=== PATIENT | female | born 1965 | race Caucasian/White ===

== ENCOUNTER 2025-01-19 14:11 | Emergency (ER) | payer OTHER, MEDICAID, SELFPAY ==
[2025-01-19 14:13] VITALS: BP 164/89; PULSE 96; RESP 16; TEMP 36.7; O2SAT 96; BMI 28.1
--- NOTE | 2025-01-19 14:13 | ED_ITS ---
HPI - General Adult 2 General: Chief complaint: Psychiatric Symptoms Stated complaint: 96 Time Seen by Provider: 01/19/25 14:12 History of Present Illness: 59-year-old female presents emergency ro om in custody of law enforcement. She is brought in under 96 she had made several threats to feeling worse or feel that affidavits that she was going to harm herself and instead been taking several Xanax she appears to be under the influence of those at this time. She denies any drug or alcohol use. She is gotten into some fights with her and really they are going through a divorce she is very upset which precipitated the episode today. Associated symptoms: Deny chest pain, dyspnea or rash Related Data Allergies Allergy/AdvReac Type Severity Reaction Status Date / Time naproxen (From Aleve) Allergy ADR-Itching Verified 01/19/25 14:21 Review of Systems 2 Const: Denies: fever(s) or chills Card: Denies: chest pain Resp: Denies: dyspnea GI: Denies: abdominal pain : Denies: dysuria, urinary frequency or urinary urgency Musc: Denies: neck pain or back pain Skin/Breast: Denies: rash Physical Exam 2 Const: GENERAL APPEARANCE: cooperative ORIENTATION/CONSCIOUSNESS: Yes awake HENMT: COMMON NORMALS: normocephalic, atraumatic and hearing grossly normal bilaterally HEAD & SCALP: normocephalic and atraumatic Resp: COMMON NORMALS: normal respiratory effort, No retractions, No use of accessory muscles and clear to auscultation bilaterally AUSCULTATION: clear to auscultation bilaterally Cardio: COMMON NORMALS: regular rate, regular rhythm and No murmurs present (Cardio) RATE: regular rate RHYTHM: regular rhythm Extremity: COMMON NORMALS: normal to inspection, capillary refill normal, no clubbing, cyanosis or edema, no calf tenderness and no pedal edema Skin: COMMON NORMALS: no rashes or lesions noted GENERAL SKIN EXAM: no rashes or lesions noted Course 2 Vital Signs: Vital signs: Vital Signs Temperature 98.1 F 01/19/25 14:13 Pulse Rate 96 01/19/25 14:13 Respiratory Rate 16 01/19/25 14:13 Blood Pressure 164/89 01/19/25 14:13 Pulse Oximetry 96 01/19/25 14:13 Oxygen Delivery Me thod Room Air 01/19/25 14:13 MDM - General Adult Medical Decision Making Patient has made suicidal expression she is currently on a 96-hour hold. Reviewed affidavits this point with concur with admission to psychiatry and her 96-hour hold we do not have any beds available at our facility and she will need to be transferred to outside facility. Medical Records I reviewed the patient's medical records. Lab Data I reviewed the patient's lab results. 01/19/25 14:54 01/19/25 14:54 Laboratory Results WBC 8.11 10^3/uL (3.29-11.43) 01/19/25 14:54 RBC 4.53 10^6/uL (3.85-5.65) 01/19/25 14:54 Hgb 12.40 g/dL (11.27-16.99) 01/19/25 14:54 Hct 39.8 % (36-47) 01/19/25 14:54 MCV 87.9 fl (85-98) 01/19/25 14:54 MCH 27.4 pg (27-33) 01/19/25 14:54 MCHC 31.2 g/dL (30-55) 01/19/25 14:54 RDW 14.4 % (12.1-15.1) 01/19/25 14:54 Plt Count 385 10^3/cmm (157-399) 01/19/25 14:54 MPV 9.0 fL (7.4-10.4) 01/19/25 14:54 Neut % (Auto) 51.3 % 01/19/25 14:54 Lymph % (Auto) 36.3 % 01/19/25 14:54 [place] % (Auto) 9.2 % 01/19/25 14:54 Eos % (Auto) 2.5 % 01/19/25 14:54 Baso % (Auto) 0.5 % 01/19/25 14:54 Neut # (Auto) 4.16 10^3/uL (1.8-7.7) 01/19/25 14:54 Lymph # (Auto) 2.9 10^3/uL (0.8-4.8) 01/19/25 14:54 Chelan # (Auto) 0.8 10^3/uL (0.2-0.9) 01/19/25 14:54 Eos # (Auto) 0.2 10^3/uL (0.0-0.8) 01/19/25 14:54 Baso # (Auto) 0.0 10^3/uL (0.0-0.1) 01/19/25 14:54 Nucleated RBC % (auto) 0 % 01/19/25 14:54 Nucleated RBCs # 0.0 /100WBC 01/19/25 14:54 Sodium 139 mmol/L (136-145) 01/19/25 14:54 Potassium 4.1 mmol/L (3.5-5.1) 01/19/25 14:54 Chloride 103 mmol/L (98-107) 01/19/25 14:54 Carbon Dioxide 27 mmol/L (22-29) 01/19/25 14:54 Anion Gap 13.1 (5-19) 01/19/25 14:54 BUN 7 mg/dL (8-23) L 01/19/25 14:54 Creatinine 0.9 mg/dL (0.5-0.9) 01/19/25 14:54 GFR Calculation 63.9 mL/min (90-130) L 01/19/25 14:54 Glucose 107 mg/dL (65-115) 01/19/25 14:54 Calculated Osmolality 286 mOsm/kg (285-295) 01/19/25 14:54 Calcium 9.4 mg/dL (8.5-10.5) 01/19/25 14:54 Total Bilirubin 0.2 mg/dL (0.15-1.2) 01/19/25 14:54 AST 12 U/L (0-32) 01/19/25 14:54 ALT 10 U/L (0-33) 01/19/25 14:54 Alkaline Phosphatase 129 U/L (35-105) H 01/19/25 14:54 Total Protein 7.1 g/dL (6.6-8.7) 01/19/25 14:54 Albumin 3.8 g/dL (3.5-5.2) 01/19/25 14:54 Globulin 3.3 g/dL (1.3-4.6) 01/19/25 14:54 Salicylates < 0.3 mg/dL (3-10) L 01/19/25 14:54 Acetaminophen < 5.0 ug/mL (10-30) L 01/19/25 14:54 Ethyl Alcohol < 10 mg/dL (0-10) 01/19/25 14:54 Influenza A (PCR) Negative (Negative) 01/19/25 14:54 Influenza Type B (PCR) Negative (Negative) 01/19/25 14:54 RSV (PCR) Negative (Negative) 01/19/25 14:54 SARS-CoV-2 (PCR) Negative (Negative) 01/19/25 14:54 No radiology studies performed this visit Discharge Plan Discharge Patient Disposition: Xfer Psychiatric Hosp Clinical Impression: Suicidal ideation Condition: Stable Referrals: Thomas Hilliard DO [Referring, Family Practice] Mendy Lemons DO [Primary Care Provider, [facility]] Print Language: Romansh Coding Level of Care Code ED Chimney Builder Brick for Liliana Delgado
--- OUTSIDE RECORDS SUMMARY | 2025-01-19 14:22 | XMS_ITS | Encounter Summary ---
Author Organization [facility] Address [address] [place] [address] Care Team Providers Care Assistant Professor Of Biology Name Role Phone Karen Haynes MD Primary Care Provider [phone] Encounter Details Date Type Department Care Team (Late st Contact Info) Description 12/28/2009 Ancillary Orders [facility] 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 This shows some mild tricompartmental arthritis present but most severe in the medial compartment which shows a near lgua-gk-rybc appearance of the medial compartment. Procedure Note Akash Waggoner MD - 01/01/2010 Outside x-rays were reviewed as well as a 45-degree weight-bearing PA viewtaken here in the office. This shows some mild tricompartmental arthritispresent but most severe in the medial compartment which shows a vxzjfodz-uo-wtys appearance of the medial compartment. us Akash Waggoner MD DIAGNOSTIC IMAGING ORDERABLES Final Result documented in this encounter Visit Diagnoses Diagnosis Pain Generalized pain documented in this encounter Care Teams Assistant Professor Of Biology Relationship Specialty Start Date End Date Karen Haynes MD [address] [place] [address] PCP - General Internal Medicine 11/22/19 documented as of this encounter
--- OUTSIDE RECORDS SUMMARY | 2025-01-19 14:22 | XMS_ITS | Clinical Summary ---
Author Organization [facility] Address [address] [place] [address] Care Team Providers Care Professor Of Literature Name Role Phone Karen Haynes MD Primary Care Provider [phone] [phone] Allergies Active Allergy Reactions Criticality Noted Date Comments Ibuprofen Other (See Comments) 11/22/2019 Not supposed to have because she only has one kidney Naproxen Sodium Nausea and Vomiting Low 12/05/2009 Medications atorvastatin (LIPITOR) 20 mg Oral tablet Take 20 mg by mouth Daily LATE. Active atenolol (TENORMIN) 50 mg Oral tablet Take 50 mg by mouth daily. Active PROAIR HFA 90 MCG/ACTUATION AEROSOL INHALER Take 2 Puffs by inhalation every 6 hours as needed. 011 Active fenofibrate nanocrystallized (TRICOR) 145 mg Oral tablet Take 145 mg by mouth daily. Active OTHER Neurogenic- Diclofenac 3%,Baclofen 2%, Cyclobenzaprine 2%, Gabapentin 6%,Lidocaine 2%,(DBCGL) in transdermal cream stake driver, (Musculoskeletal pain/Inflamation) Apply 1-2 grams to affected area 3-4 times daily, 240 grams, 0 refills 1 Each 0 012 Active Additional Information Patient not taking.Reported on 11/22/2019 traZODone (DESYREL) 50 mg tablet Take 100 mg by mouth daily at bedtime. Active OTHER Active OTHER CBD LOTION Active famotidine (PEPCID) 20 mg tablet Take 1 Tablet (20 mg) by mouth 2 times daily. 80 Tablet 0 2:41 PM CDT 020 Active HYDROcodone-acetami nophen (NORCO) 7.5-325 mg TabletIndications:S tatus post total right knee replacement Take 1 Tablet by mouth every 4 hours as needed for Pain, Severe. Max Daily Amount: 6 Tablets 42 Tablet Active fluconazole (DIFLUCAN) 150 mg tablet Take 1 Tablet (150 mg) by mouth daily. 1 Tablet 1 0 3:52 PM CDT 020 Active docusate sodium (DOK) 100 mg capsule Take 1 Capsule (100 mg) by mouth 2 times daily. 60 Capsule 0 3:52 PM CDT 020 Active tiZANidine (ZANAFLEX) 4 mg TabletIndications:S tatus post total right knee replacement Take 1 Tablet (4 mg) by mouth every 6 hours as needed for Spasm. 45 Tablet 0 3:52 PM CDT 020 Active gabapentin (NEURONTIN) 300 mg capsuleIndications: Status post total right knee replacement,Chronic pain of right knee Take 1 Capsule (300 mg) by mouth daily at bedtime. 30 Capsule 2 0 3:52 PM CDT 020 Active traMADoL (ULTRAM) 50 mg tabletIndications:S tatus post total right knee replacement Take 1 tablet by mouth every 6 hours as needed for pain. Maximum of 4 per day. 60 Tablet 020 Active Active Problems Problem Noted Date Diagnosed Date Preoperative general physical examination 2019 Essential hypertension 11/08/2019 Panic attacks 11/08/2019 Solitary kidney, congenital 11/08/2019 Muscle spasm 11/08/2019 Mild intermittent asthma without complication Severe obesity (BMI 35.0-39.9) with comorbidity 11/08/2019 Breast hypertrophy 09/30/2011 Back pain 09/30/2011 Tobacco abuse 09/30/2011 Tobacco abuse counseling 09/30/2011 Primary osteoarthritis of right knee 12/18/2010 LBP radiating to right leg 01/15/2010 DDD (degenerative disc disease), lumbar 01/16/20 10 Overview (01/15/2010): L5-S1 with annular tear Obesity (BMI 35.0-39.9 without comorbidity) Resolved Problems Problem Noted Date Diagnosed Date Resolved Date Tobacco use disorder 04/16/2010 011 Tear of lateral cartilage or meniscus of knee, current 01/15/2010 04/16/2010 Overview (01/15/2010): Left knee Bodies, loose, joint, knee 01/15/2010 0 04/16/2010 Overview (01/15/2010): Left Family History Medical History Relation Name Comments Respiratory Disease Brother 1 COPD Heart Disease Brother 2 High Cholesterol Brother 2 Hypertension Brother 2 Heart Disease Brother 3 Heart Disease Brother 4 No Known Problems Brother 5 Healthy Daughter High Cholesterol Father Hypertension Father Heart Disease Maternal Grandfather Asthma Maternal Grandmother Hypertension Maternal Grandmother Stroke Maternal Grandmother Thyroid Disease Maternal Grandmother High Cholesterol Mother Hypertension Mother High Cholesterol Sister Hypertension Sister Respiratory Disease Sister COPD Healthy Son Relation Name Status Comments Brother 1 Alive Brother 2 Brother 3 Brother 4 Brother 5 Alive Daughter Alive Father Alive Maternal Grandfather Maternal Grandmother Mother Alive Paternal Grandfather Paternal Grandmother Sister Alive Son Alive Social History Tobacco Use Types Packs/Day Years Used Date Smoking Tobacco: Former Cigarettes 2 20 0 09/08/1999 - 09/08/2019 Smokeless Tobacco: Never Alcohol Use Standard Drinks/Week Comments Not Currently 0 (1 standard drink = 0.6 oz pur e alcohol) not drinking currently Comments No Sex and Gender Information Value Date Recorded Sex Assigned at Not on file 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 Gender Identity Not on file Sexual Orientation Not on file Occupation Industry Job Start Date Job End Date Not on file Not on file Not on file Not on file Last Filed Vital Signs Vital Sign Reading Time Taken Comments Blood Pressure 138/77 01/02/2020 1:12 PM CDT Pulse 85 01/02/2020 1:12 PM CDT Temperature 36.7 C (98.1 F) 11/23/2019 8:35 AM CDT Respiratory Rate 16 11/23/2019 8:35 AM CDT Oxygen Saturation 91% 11/23/2019 8:35 AM CDT Inhaled Oxygen Concentration - - Weight 108 kg (238 lb) 01/02/2020 1:12 PM CDT Height 175.3 cm (5' 9 ) 01/02/2020 1:12 PM CDT Body Mass Index 35.15 01/02/2020 1:12 PM CDT Plan of Treatment Health Maintenance Due Date Last Done Comments Pre-Diabetes and Diabetes Screening 1964 DTAP/TDAP/TD VACCINES (1 - Tdap) 09/24/1983 HPV/Cotest (21-29) 1985 CERVICAL CANCER SCREENING 1994 HPV/Cotest (30-65) 1994 PAP SMEAR 1994 COLORECTAL SCREENING 2009 Colorectal Cancer Screening 2009 FIT-DNA Q 3 years 2009 FIT/FOBT Q 1 year 2009 Flex Sig/CT Colonography Q 5 years 2009 RSV VACCINE (60+ or ) (1 - Risk 50-74 years 1-dose series) 2014 ZOSTER VACCINE (1 of 2) 2014 BREAST CANCER SCREENING 12/03/2018 12/03/2017 INFLUENZA VACCINE (#1) 2024 12/05/2017 HEPATITIS B VACCINES Aged Out No long er eligible based on patient's age to complete this topic Medical Devices Implanted Type Area Felt Cementer Device Identifier Shelf Expiration Date Model / Serial / Lot Log [id number] - Cement - 1 - Cement [place] G-Hv 40g [id number] Implanted:Qty: 1 on 12/18/2010 at [facility] Cement Left: Knee [employer] 04/23/2012 [id number] / / [id number] Log [id number] - Biomet Partial Knee System - 1 - Bearing Uni Fem Kings Med [id number] Implanted:Qty: 1 on 12/18/2010 at [facility] Knee Left: Knee [employer] 09/20/2020 [id number] / / [id number] Log [id number] - Biomet Partial Knee System - 1 - Tray Tib Kings Uni Szb Lm [id number] Implanted:Qty: 1 on 12/18/2010 at [facility] Knee Left: Knee [employer] 07/21/2020 [id number] / / [id number] Log [id number] - Biomet Partial Knee System - 1 - Bearing Kings Sz 4 [id number] Implanted:Qty: 1 on 12/18/2010 at [facility] Knee Left: Knee [employer] 07/22/2015 [id number] / / [id number] Insert Attune Ps Rp Sz5 7mm [id number] - [id number] Implanted:Qty: 1 on 11/22/2019 by Akash Waggoner MD at [facility] Knee Right: Knee [employer] [id number] 07/20/2024 [id number] / / [id number] Baseplate Tib Attune Rp Sz4 1506-11-004 - [id number] Implanted:Qty: 1 on 11/22/2019 by Akash Waggoner MD at [facility] Knee Right: Knee [employer] [id number] 05/20/2028 [id number] / / [id number] Fem Porocoat Ps 5n Cmntls Implanted:Qty: 1 on 11/22/2019 by Akash Waggoner MD at [facility] Right: Knee 05/20/2029 DEPUY SYNTHES - [id number] / / [id number] Procedures Procedure Name Priority Date/Time Associated Diagnosis Comments MAMMO DIAGNOSTIC BILATERAL W OR WO CAD Routine 12/03/2017 from Last 3 Months or Most Recently Relevant to Health Maintenance Results * MAMMO DIAGNOSTIC BILATERAL W OR WO CAD (12/03/2017) Anatomical Region Laterality Modality Breast Bilateral Mammography us Abstract Spg Provider MAMMO ORDERABLES Final Res ult from Last 3 Months or Most Recently Relevant to Health Maintenance Insurance MEDICAID [facility] RX [facility] Medicare Part D RX [employer] Medicaid RX [employer] (INTERNAL) [facility] Plans Advance Directives For more information, please contact: [phone] * Full Code (Latest Code Status on File) Date Activated Date Inactivated Comments 11/22/2019 11:28 AM 11/23/2019 6:36 PM * Full Code Date Activated Date Inactivated Comments 11/22/2019 9:56 AM 11/22/2019 11:27 AM * Full Code Date Activated Date Inactivated Comments 12/18/2010 2:49 PM 12/19/2010 5:53 PM * Full Code Date Activated Date Inactivated Comments 12/18/2010 10:26 AM 12/18/2010 2:49 PM * Full Code Date Activated Date Inactivated Comments 02/11/2010 7:00 AM 02/11/2010 6:47 PM Care Teams Professor Of Literature Relationship Specialty Start Date End Date Karen Haynes MD [address] [place] [address] PCP - General Internal Medicine 11/22/19
--- OUTSIDE RECORDS SUMMARY | 2025-01-19 14:22 | XMS_ITS | Encounter Summary ---
Author Organization [facility] Address [address] [place] [address] Care Team Providers Care Systems Engineering Manager Name Role Phone Karen Haynes MD Primary Care Provider [phone] [phone] Reason for Referral * Outpatient Services (Routine) - Closed Specialty Diagnoses / Procedures Referred By Contac t Referred To Contact Diagnoses Back pain Procedures MRI LUMBAR WO CONTRAST Tram Melton NP [address] [place] [phone] Phone: tel: fax: Referral ID Status Reason Start Date Expiration Date Visits Re quested Visits Authorized [id number] Closed 12/24/2009 06/22/2010 1 1 Encounter Details Date Type Department Care Team (Late st Contact Info) Description 12/24/2009 Ancillary Orders [facility] [place] [address] [facility] [address] [place] [phone] Tram Melton SOFTWARE SALES REPRESENTATIVE [address] [place] [phone] Back pain Social History Tobacco Use Types Packs/Day Years Used Date Smoking Tobacco: Every Day Cigarettes 1 15 Alcohol Use Standard Drinks/Week Comments No 0 (1 standard drink = 0.6 oz pur e alcohol) Comments Unknown Sex and Gender Information Value Date Recorded Sex Assigned at Not on file 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 No compression of the cauda equina is noted. rli - uploaded from [email or web address] 12/25/2009 3:13 PM CDT Exam: MRI LUMBAR WO CONTRAST Date/Time of Exam: Dec 24, 2009 5:17:00 PM History: BACK PAIN. Technique: Sagittal T1, sagittal T2, sagittal IR, axial T1, axial T2 images of the lumbar spine were performed. No contrast agent was utilized. Findings: Three sagittal noncontrast images show signal loss and volume loss at L5-S1 with central high signal defect in annulus. . The upper 4 lumbar interspaces show normal disc volume, disc signal and endplate change. S1-S2 shows a vestigial interspace. T12-L1 interspace shows volume loss. No compression of the cord, conus or cauda equina is noted. No abnormal signal from within the posterior elements is present. No abnormal reparative signal in the endplates is present. Sagittal T2 sequence shows clear neural foramina. The transaxial images show normal L1-L2, normal L2-L3, normal L3-L4, normal L4-L5. L5-S1 shows a circumferential bulge of the annulus and facet hypertrophy with adequate canal dimensions. S1-S2 shows transitional changes. Procedure Note Ghulam Sullivan MD - 12/25/2009 Exam: MRI LUMBAR WO CONTRAST Date/Time of Exam: Dec 24, 2009 5:17:00 PM History: BACK PAIN. Technique: Sagittal T1, sagittal T2, sagittal IR, axial T1, axial T2 images of the lumbar spine were performed. No contrast agent was utilized. Findings: Three sagittal noncontrast images show signal loss and volume loss at L5-S1 with central high signal defect in annulus. . The upper 4 lumbar interspaces show normal disc volume, disc signal and endplate change. S1-S2 shows a vestigial interspace. T12-L1 interspace shows volume loss. No compression of the cord, conus or cauda equina is noted. No abnormal signal from within the posterior elements is present. No abnormal reparative signal in the endplates is present. Sagittal T2 sequence shows clear neural foramina. The transaxial images show normal L1-L2, normal L2-L3, normal L3-L4, normal L4-L5. L5-S1 shows a circumferential bulge of the annulus and facet hypertrophy with adequate canal dimensions. S1-S2 shows transitional changes. IMPRESSION Impression: Changes of aging in L5-S1 disc with signal loss, volume loss and central vjnh-xjecli-aevnlnaxy defect. No compression of the cauda equina is noted. rli - uploaded from [employer] - Tram Melton SOFTWARE SALES REPRESENTATIVE MR ORDERABLES Final Result documented in this encounter Visit Diagnoses Diagnosis Back pain Backache, unspecified Back pain Backache, unspecified documented in this encounter Care Teams Systems Engineering Manager Relationship Specialty Start Date End Date Karen Haynes MD [address] [place] [phone] PCP - General Internal Medicine 11/22/19 documented as of this encounter
--- OUTSIDE RECORDS SUMMARY | 2025-01-19 14:22 | XMS_ITS | Encounter Summary ---
Author Organization [facility] Address [address] [place] [address] Care Team Providers Care Supervising Architect Name Role Phone Karen Haynes MD Primary Care Provider [phone] Encounter Details Date Type Department Care Team (Late st Contact Info) Description 10/25/2010 Ancillary Orders [facility] 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 The 45-degree PA view showed medial compartment arthritis and the valgus stress view showed that her medial compartment opened up without collapse of the lateral compartment on the stress view. Procedure Note Akash Waggoner MD - 10/29/2010 A 45-degree PA view and a valgus stress view was obtained today. [id number] PA view showed medial compartment arthritis and the valgusstress view showed that her medial compartment opened up without collapseof the lateral compartment on the stress view. us Akash Waggoner MD DIAGNOSTIC IMAGING ORDERABLES Final Result documented in this encounter Visit Diagnoses Diagnosis Pain Generalized pain documented in this encounter Care Teams Supervising Architect Relationship Specialty Start Date End Date Karen Haynes MD [address] [place], [place] [address] PCP - General Internal Medicine 11/22/19 documented as of this encounter
--- OUTSIDE RECORDS SUMMARY | 2025-01-19 14:22 | XMS_ITS | Encounter Summary ---
Author Organization [facility] Address [address] [place] [address] Care Team Providers Care Piercer Name Role Phone Karen Haynes MD Primary Care Provider +1 [phone] Encounter Details Date Type Department Care Team (Late st Contact Info) Description 07/08/2005 Emergency [facility] Emergency Department [address] 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
--- OUTSIDE RECORDS SUMMARY | 2025-01-19 14:22 | XMS_ITS | Encounter Summary ---
Author Organization [facility] Address [address] [place] [address] Care Team Providers Care Rn Psychiatric Name Role Phone Karen Haynes MD Primary Care Provider +1 -[phone] Reason for Referral * Outpatient Services (Routine) - Closed Specialty Diagnoses / Procedures Referred By Contac t Referred To Contact Diagnoses DDD (degenerative disc disease), lumbar LBP radiating to right leg Procedures XR FLUORO NEEDLE GUIDANCE Alistair Young MD [address] [place] [address] Phone: tel: fax: Referral ID Status Reason Start Date Expiration Date Visits Re quested Visits Authorized [id number] Closed 02/27/2010 08/26/2010 1 1 ITION TECH Encounter Details Date Type Department Care Team (Late st Contact Info) Description 02/27/2010 Ancillary Orders [facility] [address] [place] [address] Alistair Young MD [address] [place] [address] DDD (degenerative disc disease), lumbar; LBP radiating to right leg Social History Tobacco Use Types Packs/Day Years Used Date Smoking Tobacco: Every Day Cigarettes 1 15 Alcohol Use Standard Drinks/Week Comments No 0 (1 standard drink = 0.6 oz pur e alcohol) Comments Unknown Sex and Gender Information Value Date Recorded Sex Assigned at Not on file Legal Sex Female 4:38 AM NUTRITION TECH Gender Identity Not on file Sexual Orientation Not on file documented as of this encounter Plan of Treatment Not on file documented as of this encounter Results * XR FLUORO NEEDLE GUIDANCE (02/27/2010 12:31 PM NUTRITION TECH) Anatomical Region Laterality Modality Computed Radiogr aphy Alistair Young MD DIAGNOSTIC IMAGING ORDERABLES Final Result documented in this encounter Visit Diagnoses Diagnosis DDD (degenerative disc disease), lumbar Degeneration of lumbar or lumbosacral intervertebral disc LBP radiating to right leg Lumbago documented in this encounter Care Teams Rn Psychiatric Relationship Specialty Start Date End Date Karen Haynes MD [address] [place] [address] PCP - General Internal Medicine 11/22/19 documented as of this encounter
--- OUTSIDE RECORDS SUMMARY | 2025-01-19 14:22 | XMS_ITS | Encounter Summary ---
Author Organization [facility] Address [address] [place] [address] Care Team Providers Care Senior Software Engineer Analytics Name Role Phone Karen Haynes MD Primary Care Provider +1 [phone] Reason for Referral * Radiology Services (Routine) - Closed Specialty Diagnoses / Procedures Referred By Contac t Referred To Contact Diagnoses Visit for screening mammogram Procedures MAMMO 3D SCREEN BILATERAL MOBILE Karen Haynes MD [address] [place] [address] Phone: tel: fax: Referral ID Status Reason Start Date Expiration Date Visits Re quested Visits Authorized [id number] Closed 04/06/2019 05/06/2020 1 1 C2 TACTICAL ANALYSIS TECHNICIAN Encounter Details Date Type Department Care Team (Latest Contact Info) Description 04/06/2019 Ancillary Orders [facility] [address] [facility] [address] [place] [address] Karen Haynes MD [address] [place] [address] Visit for screening mammogram Social History Tobacco Use Types Packs/Day Years Used Date Smoking Tobacco: Every Day Cigarettes 0.5 15 Smokeless Tobacco: Never Alcohol Use Standard Drinks/Week Comments No 0 (1 standard drink = 0.6 oz pur e alcohol) rare Comments No Sex and Gender Information Value Date Recorded Sex Assigned at Not on file Legal Sex Female 4:38 AM C2 TACTICAL ANALYSIS TECHNICIAN Gender Identity Not on file Sexual Orientation Not on file Occupation Industry Job Start Date Job End Date Not on file Not on file Not on file Not on file documented as of this encounter Plan of Treatment Scheduled Orders Name Type Priority Associated Diagnoses Orde r Schedule MAMMO 3D SCREEN BILATERAL MOBILE Imaging Routine Visit for screening mammogram 1 Occurrences starting 04/06/2019 until 10/04/2020 documented as of this encounter Visit Diagnoses Diagnosis Visit for screening mammogram Other screening mammogram documented in this encounter Care Teams Senior Software Engineer Analytics Relationship Specialty Start Date End Date Karen Haynes MD [address] [place] [address] PCP - General Internal Medicine 11/22/19 documented as of this encounter
--- OUTSIDE RECORDS SUMMARY | 2025-01-19 14:22 | XMS_ITS | Encounter Summary ---
Author Organization [facility] Address [address] [place] [address] Care Team Providers Care Lipstick Molder Name Role Phone Karen Haynes MD Primary Care Provider +1 [phone] Encounter Details Date Type Department Care Team (Late st Contact Info) Description 06/09/2011 Ancillary Orders [facility]- [address] [place] [address] Akash Waggonre MD [address] [place] [address] Pain Social History Tobacco Use Types Packs/Day Years Used Date Smoking Tobacco: Every Day Cigarettes 0.3 15 Smokeless Tobacco: Never Alcohol Use Standard Drinks/Week Comments Yes 0 (1 standard drink = 0.6 oz pur e alcohol) rare Comments Unknown Sex and Gender Information Value Date Recorded Sex Assigned at Not on file Legal Sex Female 4:38 AM CARE ASST Gender Identity Not on file Sexual Orientation Not on file documented as of this encounter Plan of Treatment Not on file documented as of this encounter Results * XR KNEE 1 OR 2 VW LEFT (06/09/2011 2:19 PM CDT) Anatomical Region Laterality Modality Lower Extremity Computed Radiogr aphy Narrative 06/10/2011 7:00 AM CDT AP and lateral x-rays of the left knee reveals the [place] arthroplasty to be in place. There is no evidence of osteolytic or osteoblastic change. No loosening. The implant appears to be in stable position as does the polyethylene. Procedure Note Akash Waggoner MD - 06/10/2011 AP and lateral x-rays of the left knee reveals the [place] arthroplasty rohan in place. There is no evidence of osteolytic or osteoblastic change.No loosening. The implant appears to be in stable position as does thepolyethylene. us Akash Waggoner MD DIAGNOSTIC IMAGING ORDERABLES Final Result documented in this encounter Visit Diagnoses Diagnosis Pain Generalized pain documented in this encounter Care Teams Lipstick Molder Relationship Specialty Start Date End Date Karen Haynes MD [address] [place], [place] [address] PCP - General Internal Medicine 11/22/19 documented as of this encounter
--- OUTSIDE RECORDS SUMMARY | 2025-01-19 14:22 | XMS_ITS | Encounter Summary ---
Author Organization [facility] Address [address] [place] [address] Care Team Providers Care Counter Supply Worker Name Role Phone Karen Haynes MD Primary Care Provider +1 [phone] Encounter Details Date Type Department Care Team (Late st Contact Info) Description 10/22/2010 Ancillary Orders [facility] Orthopedics[address] [place] [address] Alistair Young MD [address] [place] [address] Pain Social History Tobacco Use Types Packs/Day Years Used Date Smoking Tobacco: Every Day Cigarettes 0.1 15 Smokeless Tobacco: Never Alcohol Use Standard Drinks/Week Comments No 0 (1 standard drink = 0.6 oz pur e alcohol) Comments Unknown Sex and Gender Information Value Date Recorded Sex Assigned at Not on file Legal Sex Female 4:38 AM SEWAGE PLANT OPERATOR Gender Identity Not on file Sexual Orientation Not on file documented as of this encounter Plan of Treatment Not on file documented as of this encounter Results * XR KNEE 1 OR 2 VW LEFT (10/22/2010 10:47 AM CDT) Anatomical Region Laterality Modality Lower Extremity Computed Radiogr aphy Narrative 10/23/2010 11:41 AM CDT Review of the pictures of her knee: She had a pretty much normal appearing lateral compartment, lateral meniscus, lateral tibial plateau, and lateral femoral condyle. 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 She had a fairly large partial medial meniscectomy. Her plain films today, standing and AP of both knees, shows that she has a varus deformity to her left knee with some early squaring of the condyles laterally, but really not bad, and she had a recent scope that showed the cartilage areas were fairly normal. Procedure Note Alistair Young MD - 10/23/2010 Review of the pictures of her knee: She had a pretty much normal appearinglateral compartment, lateral meniscus, lateral tibial plateau, and lateralfemoral condyle. She had the grade 4 chondromalacia and on the medialside, both femoral and tibial side. She had a fairly large partial medialmeniscectomy. Her plain films today, standing and AP of both knees, showsthat she has a varus deformity to her left knee with some early squaringof the condyles laterally, but really not bad, and she had a recent scopethat showed the cartilage areas were fairly normal. us Alistair Young MD DIAGNOSTIC IMAGING ORDERABLES Final Result documented in this encounter Visit Diagnoses Diagnosis Pain Generalized pain documented in this encounter Care Teams Counter Supply Worker Relationship Specialty Start Date End Date Karen Haynes MD [address] [place] [address] PCP - General Internal Medicine 11/22/19 documented as of this encounter
--- OUTSIDE RECORDS SUMMARY | 2025-01-19 14:22 | XMS_ITS | Encounter Summary ---
Author Organization [facility] Address [address] [place] [address] Care Team Providers Care Racking Machine Operator Name Role Phone Karen Haynes MD Primary Care Provider +1 [phone] Encounter Details Date Type Department Care Team (Latest Contact Info) Description 02/18/2001 Outpatient Historical [facility] Medicine [address] [phone] Joellen Martinez MD [address] [place] [address] SPON ABORT UNCOMPL-COMP (Primary Dx); GENERALIZED ANXIETY DIS; INSOMNIA NEC Social History Tobacco Use Types Packs/Day Years Used Date Smoking Tobacco: Never Assessed Comments Unknown Sex and Gender Information Value Date Recorded Sex Assigned at Not on file Legal Sex Female 4:38 AM DIRECTOR OF COLLECTIONS AND ARCHIVES Gender Identity Not on file Sexual Orientation Not on file documented as of this encounter Plan of Treatment Not on file documented as of this encounter Visit Diagnoses Diagnosis Complete spontaneous without mention of complication- Primary Generalized anxiety disorder Insomnia, unspecified documented in this encounter Care Teams Racking Machine Operator Relationship Specialty Start Date End Date Karen Haynes MD [address] [place] [address] PCP - General Internal Medicine 11/22/19 documented as of this encounter
--- OUTSIDE RECORDS SUMMARY | 2025-01-19 14:22 | XMS_ITS | Encounter Summary ---
Author Organization [facility] Address [address] [place] [address] Care Team Providers Care Certified Physician'S Assistant Name Role Phone Karen Haynes MD Primary Care Provider [phone] [phone] Encounter Details Date Type Department Care Team (Latest Contact Info) Description 02/09/2001 Outpatient Historical [facility] Medicine [address] [address] Joellen Martinez MD [address] [place] [address] SUPERVIS OTHER NORMAL PREG (Primary Dx); THREATEN ABORT-ANTEPART Social History Tobacco Use Types Packs/Day Years Used Date Smoking Tobacco: Never Assessed Comments Unknown Sex and Gender Information Value Date Recorded Sex Assigned at Not on file Legal Sex Female 4:38 AM PHD INTERNSHIP Gender Identity Not on file Sexual Orientation Not on file documented as of this encounter Plan of Treatment Not on file documented as of this encounter Visit Diagnoses Diagnosis Supervision of other normal - Primary Threatened , antepartum documented in this encounter Care Teams Certified Physician'S Assistant Relationship Specialty Start Date End Date Karen Haynes MD [address] [place] [address] PCP - General Internal Medicine 11/22/19 documented as of this encounter
--- OUTSIDE RECORDS SUMMARY | 2025-01-19 14:22 | XMS_ITS | Encounter Summary ---
Author Organization [facility] Address [address] [facility] [address] [address] [facility] [address] Tobias: [place] [address] Care Team Providers Care Carton Catcher Name Role Phone Karen Haynes MD Primary Care Provider +1 [phone] Encounter Details Date Type Department Care Team (Late st Contact Info) Description 02/09/2001 Outpatient Historical Joellen Martinez MD [address] [place] [phone] Social History Tobacco Use Types Packs/Day Years Used Date Smoking Tobacco: Never Assessed Comments Unknown Sex and Gender Information Value Date Recorded Sex Assigned at Not on file Legal Sex Female 4:38 AM CORPORATE DIRECTOR Gender Identity Not on file Sexual Orientation Not on file documented as of this encounter Plan of Treatment Not on file documented as of this encounter Visit Diagnoses Not on filedocumented in this encounter Care Teams Carton Catcher Relationship Specialty Start Date End Date Karen Haynes MD [address] [place] [address] PCP - General Internal Medicine 11/22/19 documented as of this encounter
--- NOTE | 2025-01-19 14:34 | PC.NURSE ---
Pt personal clothing and belongings removed and given to security for inventory, Pt was changed into green scrubs and hospital socks
[2025-01-19 15:11] LABS: Hematocrit 39.8 % (36-47); Hemoglobin 12.40 g/dL (11.27-16.99); Mean Corpuscular HGB Conc 31.2 g/dL (30-55); Mean Corpuscular Hemoglobin 27.4 pg (27-33); Mean Corpuscular Volume 87.9 fl (85-98); Nucleated Red Blood Cells % 0 %; Platelet Count 385 10^3/cmm (157-399); Red Blood Count 4.53 10^6/uL (3.85-5.65); White Blood Count 8.11 10^3/uL (3.29-11.43)
[2025-01-19 15:31] LABS: Alanine Aminotransferase 10 U/L (0-33); Albumin Level 3.8 g/dL (3.5-5.2); Alkaline Phosphatase 129 U/L (35-105); Anion Gap 13.1 (5-19); Aspartate Amino Transferase 12 U/L (0-32); Blood Urea Nitrogen 7 mg/dL (8-23); Calcium 9.4 mg/dL (8.5-10.5); Carbon Dioxide 27 mmol/L (22-29); Chloride 103 mmol/L (98-107); Creatinine Clr Calc Pharmacy 73.0568; Globulin 3.3 g/dL (1.3-4.6); Glucose 107 mg/dL (65-115); Osmolality Calculated 286 mOsm/kg (285-295); Potassium 4.1 mmol/L (3.5-5.1); Sodium 139 mmol/L (136-145); Total Protein 7.1 g/dL (6.6-8.7)
[2025-01-19 15:37] LABS: Acetaminophen < 5.0 ug/mL (10-30); Alcohol Level < 10 mg/dL (0-10); Salicylate < 0.3 mg/dL (3-10)
[2025-01-19 15:50] LABS: Respiratory Syncytial Virus Ce NEGATIVE (Negative); SARS-CoV-2 PCR NEGATIVE (Negative)
[2025-01-19 21:51] VITALS: BP 133/89; PULSE 91; RESP 14; O2SAT 92
[2025-01-19 22:21] LABS: Glucose Urine UA Negative (Normal); Nitrate Urine Negative (Negative); Specific Gravity, Urine 1.013 (1.005-1.030)
[2025-01-19 22:26] LABS: Add Urine Microscopic? YES
[2025-01-19 22:57] LABS: PCP Screen Urine Negative (Negative)
[2025-01-19 23:20] VITALS: BP 141/99; PULSE 92; RESP 16; O2SAT 96
[2025-01-20 06:00] VITALS: BP 142/96; PULSE 88; RESP 16; O2SAT 97
== END 2025-01-20 08:26 ==
PROVIDERS: Emergency Provider Family Medicine; PCP Family Medicine
DX: R45.851 Suicidal ideations (principal); Z11.52 Encounter for screening for COVID-19
CPT/HCPCS: 80053; 80306; 80307; 81001; 85025; 87637; 99283; J9999

== ENCOUNTER 2025-01-20 08:56 | Emergency (ER) | payer OTHER, MEDICAID, SELFPAY ==
[2025-01-20 08:58] VITALS: BP 202/154; PULSE 97; RESP 18; TEMP 36.7; O2SAT 90
--- NOTE | 2025-01-20 09:01 | XR_ITS ---
WS: [id number] Exam: XR chest 1V portable [id number] Date/Time of Exam: 01/20/2025 9:30 AM Reason For Exam: chest pain No priors. The lungs are fully inflated and clear. Normal cardiomediastinal silhouette and regional bony elements. XR/XR chest 1V portable [id number] IMPRESSION: 1. Negative chest.
--- NOTE | 2025-01-20 09:02 | ECG_ITS ---
[facility] Test Date: 2025-01-20 Pat Name: Luanne Cortes Department: Room: Gender: Female Bar Manager: : 1965 Requested By: Kimberlee Headley Order Number: [id number] Corbin MD: Valerio Gannon M.D. Measurements Intervals [place] Rate: 88 P: 59 TX: 154 QRS: 21 QRSD: 81 T: 61 QT: 348 QTc: 423 Interpretive Statements SINUS RHYTHM POSSIBLE LEFT ATRIAL ENLARGEMENT [-0.1mV P-WAVE IN V1/V2] No previous ECG available for comparison Electronically Signed On 01-21-2025 21:03:17 CDT by Valerio Gannon M.D. [id number]
[2025-01-20 09:03] VITALS: BP 204/165; PULSE 88; RESP 20; O2SAT 94
--- OUTSIDE RECORDS SUMMARY | 2025-01-20 09:05 | XMS_ITS | Encounter Summary ---
Author Organization [facility] Address [address] [place] [address] Care Team Providers Care Trimmer Helper Name Role Phone Karen Haynes MD Primary Care Provider +1 [phone] Encounter Details Date Type Department Care Team (Latest Contact Info) Description 02/09/2001 Outpatient Historical [facility] Medicine [address] [address] Joellen Martinez MD [address] [place] [address] SUPERVIS OTHER NORMAL PREG (Primary Dx); THREATEN ABORT-ANTEPART Social History Tobacco Use Types Packs/Day Years Used Date Smoking Tobacco: Never Assessed Comments Unknown Sex and Gender Information Value Date Recorded Sex Assigned at Not on file Legal Sex Female 4:38 AM DEPUTY DISTRICT CUSTOMS DIRECTOR Gender Identity Not on file Sexual Orientation Not on file documented as of this encounter Plan of Treatment Not on file documented as of this encounter Visit Diagnoses Diagnosis Supervision of other normal - Primary Threatened , antepartum documented in this encounter Care Teams Trimmer Helper Relationship Specialty Start Date End Date Karen Haynes MD [address] [place] [address] PCP - General Internal Medicine 11/22/19 documented as of this encounter
--- OUTSIDE RECORDS SUMMARY | 2025-01-20 09:05 | XMS_ITS | Encounter Summary ---
Author Organization [facility] Address [address] [place] [address] Care Team Providers Care Sales Director Name Role Phone Karen Haynes MD Primary Care Provider +1 [phone] Encounter Details Date Type Department Care Team (Late st Contact Info) Description 10/25/2010 Ancillary Orders [facility] Orthopedics[address] [place] [address] Akash Waggoner MD [address] [place] [address] Pain Social History Tobacco Use Types Packs/Day Years Used Date Smoking Tobacco: Every Day Cigarettes 0.1 15 Smokeless Tobacco: Never Alcohol Use Standard Drinks/Week Comments No 0 (1 standard drink = 0.6 oz pur e alcohol) Comments Unknown Sex and Gender Information Value Date Recorded Sex Assigned at Not on file Legal Sex Female 4:38 AM INSURANCE AGENTS SUPERVISOR Gender Identity Not on file Sexual Orientation [...] a valgus stress view was obtained today. [id number] PA view showed medial compartment arthritis and the valgusstress view showed that her medial compartment opened up without collapseof the lateral compartment on the stress view. us Akash Waggoner MD DIAGNOSTIC IMAGING ORDERABLES Final Result documented in this encounter Visit Diagnoses Diagnosis Pain Generalized pain documented in this encounter Care Teams Sales Director Relationship Specialty Start Date End Date Karen Haynes MD [address] [place], [place] [address] PCP - General Internal Medicine 11/22/19 documented as of this encounter
--- OUTSIDE RECORDS SUMMARY | 2025-01-20 09:05 | XMS_ITS | Encounter Summary ---
Author Organization [facility] Address [address] [place] [address] Care Team Providers Care Second Class Welder Name Role Phone Karen Haynes MD Primary Care Provider +1 -[phone] Encounter Details Date Type Department Care Team (Late st Contact Info) Description 12/28/2009 Ancillary Orders [facility] Orthopedics- [address] [place] [address] Akash Waggoner MD [address] [place] [address] Pain Social History Tobacco Use Types Packs/Day Years Used Date Smoking Tobacco: Every Day Cigarettes 1 15 Alcohol Use Standard Drinks/Week Comments No 0 (1 standard drink = 0.6 oz pur e alcohol) Comments Unknown Sex and Gender Information Value Date Recorded Sex Assigned at Not on file Legal Sex Female 4:38 AM ACADEMIC ADVISER Gender Identity Not on file Sexual Orientation [...] the medial compartment which shows a near [id number] appearance of the medial compartment. Procedure Note Akash Waggoner MD - 01/01/2010 Outside x-rays were reviewed as well as a 45-degree weight-bearing PA viewtaken here in the office. This shows some mild tricompartmental arthritispresent but most severe in the medial compartment which shows a zcgzqycp-dm-dugw appearance of the medial compartment. us Akash Waggoner MD DIAGNOSTIC IMAGING ORDERABLES Final Result documented in this encounter Visit Diagnoses Diagnosis Pain Generalized pain documented in this encounter Care Teams Second Class Welder Relationship Specialty Start Date End Date Karen Haynes MD [address] [place] [address] PCP - General Internal Medicine 11/22/19 documented as of this encounter
--- OUTSIDE RECORDS SUMMARY | 2025-01-20 09:05 | XMS_ITS | Encounter Summary ---
Author Organization [facility] Address [address] [place] [address] Care Team Providers Care Director Of Analytics Name Role Phone Karen Haynes MD Primary Care Provider +1 -[phone] Reason for Referral * Radiology Services (Routine) - Closed Specialty Diagnoses / Procedures Referred By Contac t Referred To Contact Diagnoses Visit for screening mammogram Procedures MAMMO 3D SCREEN BILATERAL MOBILE Karen Haynes MD [address] [place] [address] Phone: tel: fax: Referral ID Status Reason Start Date Expiration Date Visits Re quested Visits Authorized [id number] Closed 04/06/2019 05/06/2020 1 1 P COLLECTOR Encounter Details Date Type Department Care Team (Latest Contact Info) Description 04/06/2019 Ancillary Orders [facility] [address] [facility] [address] [place] [address] Karen Haynes MD [address] [place] [address] Visit for screening mammogram Social History Tobacco Use Types Packs/Day Years Used Date Smoking Tobacco: Every Day Cigarettes 0.5 15 Smokeless Tobacco: Never Alcohol Use Standard Drinks/Week Comments No 0 (1 standard drink = 0.6 oz pur e alcohol) rare Comments No Sex and Gender Information Value Date Recorded Sex Assigned at Not on file Legal Sex Female 4:38 AM SCRAP COLLECTOR Gender Identity Not on file Sexual Orientation [...] mammogram documented in this encounter Care Teams Director Of Analytics Relationship Specialty Start Date End Date Karen Haynes MD [address] [place] [address] PCP - General Internal Medicine 11/22/19 documented as of this encounter
--- OUTSIDE RECORDS SUMMARY | 2025-01-20 09:05 | XMS_ITS | Encounter Summary ---
Author Organization [facility] Address [address] [place] [address] Care Team Providers Care Shafting Worker Name Role Phone Karen Haynes MD Primary Care Provider +1 -[phone] Encounter Details Date Type Department Care Team (Latest Contact Info) Description 02/18/2001 Outpatient Historical [facility] Medicine [address] [phone] Joellen Martinez MD [address] [place] [address] SPON ABORT UNCOMPL-COMP (Primary Dx); GENERALIZED ANXIETY DIS; INSOMNIA NEC Social History Tobacco Use Types Packs/Day Years Used Date Smoking Tobacco: Never Assessed Comments Unknown Sex and Gender Information Value Date Recorded Sex Assigned at Not on file Legal Sex Female 4:38 AM AUTO PARTS PROFESSIONAL Gender Identity Not on file Sexual Orientation Not on file documented as of this encounter Plan of Treatment Not on file documented as of this encounter Visit Diagnoses Diagnosis Complete spontaneous without mention of complication- Primary Generalized anxiety disorder Insomnia, unspecified documented in this encounter Care Teams Shafting Worker Relationship Specialty Start Date End Date Karen Haynes MD [address] [place] [address] PCP - General Internal Medicine 11/22/19 documented as of this encounter
--- OUTSIDE RECORDS SUMMARY | 2025-01-20 09:05 | XMS_ITS | Clinical Summary ---
Author Organization [facility] tone Address [address] [place] [address] Care Team Providers Care Junior Architect Name Role Phone Karen Haynes MD Primary Care Provider +1 [phone] Allergies Active Allergy Reactions Criticality Noted Date [...] 2%, Gabapentin 6%,Lidocaine 2%,(DBCGL) in transdermal cream van driver, (Musculoskeletal pain/Inflamation) Apply 1-2 grams to [...] on file Legal Sex Female 4:38 AM HOT STAMP OPERATOR Gender Identity Not on file Sexual [...] this topic Medical Devices Implanted Type Area Fruit Buyer Device Identifier Shelf Expiration Date Model / Serial / Lot Log [id number] - Cement - 1 - Cement [place] G-Hv 40g [id number] Implanted:Qty: 1 on 12/18/2010 at [facility] Cement Left: Knee BIOMET INC 04/23/2012 [id number] / / [id number] Log [id number] - Biomet Partial Knee System - 1 - Bearing Uni Fem [place] Med [id number] Implanted:Qty: 1 on 12/18/2010 at [facility] Knee Left: Knee BIOMET INC 09/20/2020 [id number] / / [id number] Log [id number] - Biomet Partial Knee System - 1 - Tray Tib [place] Uni Szb Lm [id number] Implanted:Qty: 1 on 12/18/2010 at [facility] Knee Left: Knee BIOMET INC 07/21/2020 [id number] / / [id number] Log [id number] - Biomet Partial Knee System - 1 - Bearing [place] Sz 4 [id number] Implanted:Qty: 1 on 12/18/2010 at [facility] Knee Left: Knee BIOMET INC 07/22/2015 [id number] / / [id number] Insert Attune Ps Rp Sz5 7mm 1516-50-507 - [id number] Implanted:Qty: 1 on 11/22/2019 by Akash Waggoner MD at [facility] Knee Right: Knee J&J- [employer]Y [employer] [id number] 07/20/2024 [id number] / / [id number] Baseplate Tib Attune Rp Sz4 1506-11-004 - [id number] Implanted:Qty: 1 on 11/22/2019 by Akash Waggoner MD at [facility] Knee Right: Knee J&J- [employer] [id number] 05/20/2028 [id number] / / [id number] Fem Porocoat Ps 5n Cmntls Implanted:Qty: 1 on 11/22/2019 by Akash Waggoner MD at [facility] Right: Knee 05/20/2029 DEPUY SYNTHES - 1504-11-225 / / [id number] Procedures Procedure Name Priority Date/Time Associated Diagnosis [...] Relevant to Health Maintenance Insurance [place]ID [place] [facility] RX [facility] Medicare Part D RX INFOCROSSING Medicaid RX [employer] (INTERNAL) [facility] Plans Advance Directives For more information, please contact: [phone] * Full Code (Latest Code Status on [...] 7:00 AM 02/11/2010 6:47 PM Care Teams Junior Architect Relationship Specialty Start Date End Date Karen Haynes MD [address] [place] [address] PCP - General Internal Medicine 11/22/19
--- OUTSIDE RECORDS SUMMARY | 2025-01-20 09:05 | XMS_ITS | Encounter Summary ---
Author Organization [facility] Address [address] [place] [address] Care Team Providers Care Lap Cutter Name Role Phone Karen Haynes MD Primary Care Provider [phone] [phone] Encounter Details Date Type Department Care Team (Late st Contact Info) Description 06/09/2011 Ancillary Orders [facility] Orthopedics- 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 There is no evidence of osteolytic or osteoblastic change. No loosening. The implant appears to be in stable position as does the polyethylene. Procedure Note Akash Waggoner MD - 06/10/2011 AP and lateral x-rays of the left knee reveals the [place] arthroplasty rohan in place. There is no evidence of osteolytic or osteoblastic change.No loosening. The implant appears to be in stable position as does thepolyethylene. us Akash Waggoner MD DIAGNOSTIC IMAGING ORDERABLES Final Result documented in this encounter Visit Diagnoses Diagnosis Pain Generalized pain documented in this encounter Care Teams Lap Cutter Relationship Specialty Start Date End Date Karen Haynes MD [address] [place], [place] [address] PCP - General Internal Medicine 11/22/19 documented as of this encounter
--- OUTSIDE RECORDS SUMMARY | 2025-01-20 09:05 | XMS_ITS | Encounter Summary ---
Author Organization [facility] Address [address] [place] [address] Care Team Providers Care Ent Physician Name Role Phone Karen Haynes MD Primary Care Provider [phone] [phone] Encounter Details Date Type Department Care Team (Late st Contact Info) Description 07/08/2005 Emergency [facility] Emergency Department [address] 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
--- OUTSIDE RECORDS SUMMARY | 2025-01-20 09:05 | XMS_ITS | Encounter Summary ---
Author Organization [facility] Address [address] [place] [address] Care Team Providers Care Aquatic Scientist Name Role Phone Karen Haynes MD Primary Care Provider [phone] [phone] Reason for Referral * Outpatient Services (Routine) - Closed Specialty Diagnoses / Procedures Referred By Contac t Referred To Contact Diagnoses DDD (degenerative disc disease), lumbar LBP radiating to right leg Procedures XR FLUORO NEEDLE GUIDANCE Alistair Young MD [address] [place] [address] Phone: tel: fax: Referral ID Status Reason Start Date Expiration Date Visits Re quested Visits Authorized [id number] Closed 02/27/2010 08/26/2010 1 1 MIZATION MANAGER Encounter Details Date Type Department Care Team (Late st Contact Info) Description 02/27/2010 Ancillary Orders [facility] [address] [place] [address] Alistair Young MD [address] [place] [address] DDD (degenerative disc disease), lumbar; LBP radiating to right leg Social History Tobacco Use Types Packs/Day Years Used Date Smoking Tobacco: Every Day Cigarettes 1 15 Alcohol Use Standard Drinks/Week Comments No 0 (1 standard drink = 0.6 oz pur e alcohol) Comments Unknown Sex and Gender Information Value Date Recorded Sex Assigned at Not on file Legal Sex Female 4:38 AM OPTIMIZATION MANAGER Gender Identity Not on file Sexual Orientation Not on file documented as of this encounter Plan of Treatment Not on file documented as of this encounter Results * XR FLUORO NEEDLE GUIDANCE (02/27/2010 12:31 PM OPTIMIZATION MANAGER) Anatomical Region Laterality Modality Computed Radiogr aphy Alistair Young MD DIAGNOSTIC IMAGING ORDERABLES Final Result documented in this encounter Visit Diagnoses Diagnosis DDD (degenerative disc disease), lumbar Degeneration of lumbar or lumbosacral intervertebral disc LBP radiating to right leg Lumbago documented in this encounter Care Teams Aquatic Scientist Relationship Specialty Start Date End Date Karen Haynes MD [address] [place] [address] PCP - General Internal Medicine 11/22/19 documented as of this encounter
--- OUTSIDE RECORDS SUMMARY | 2025-01-20 09:05 | XMS_ITS | Encounter Summary ---
Author Organization [facility] Address [address] [place] [address] Care Team Providers Care Piper Installer Name Role Phone Karen Haynes MD Primary Care Provider [phone] [phone] Reason for Referral * Outpatient Services (Routine) - Closed Specialty Diagnoses / Procedures Referred By Contac t Referred To Contact Diagnoses Back pain Procedures MRI LUMBAR WO CONTRAST Tram Melton NP [address] [place] [address] Phone: tel: fax: Referral ID Status Reason Start Date Expiration Date Visits Re quested Visits Authorized [id number] Closed 12/24/2009 06/22/2010 1 1 Encounter Details Date Type Department Care Team (Late st Contact Info) Description 12/24/2009 Ancillary Orders [facility] Family Medicine [place] [id number] [facility] [address] [place] [phone] Tram Melton COSTUME SPECIALIST [address] [place] [address] Back pain Social History Tobacco Use Types Packs/Day Years Used Date Smoking Tobacco: Every Day Cigarettes 1 15 Alcohol Use Standard Drinks/Week Comments No 0 (1 standard drink = 0.6 oz pur e alcohol) Comments Unknown Sex and Gender Information Value Date Recorded Sex Assigned at Not on file 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 No compression of the cauda equina is noted. rli - uploaded from [employer] 12/25/2009 3:13 PM CDT Exam: MRI LUMBAR [...] with signal loss, volume loss and central youm-lmwpdz-wfkjaqgqj defect. No compression of the cauda equina is noted. rli - uploaded from [employer] - Tram Melton COSTUME SPECIALIST MR ORDERABLES Final Result documented in this encounter Visit Diagnoses Diagnosis Back pain Backache, unspecified Back pain Backache, unspecified documented in this encounter Care Teams Piper Installer Relationship Specialty Start Date End Date Karen Haynes MD [address] [place] [phone] PCP - General Internal Medicine 11/22/19 documented as of this encounter
--- OUTSIDE RECORDS SUMMARY | 2025-01-20 09:05 | XMS_ITS | Encounter Summary ---
Author Organization [facility] Address [address] [place] [address] Care Team Providers Care Curtain Supervisor Name Role Phone Karen Haynes MD Primary Care Provider [phone] [phone] Encounter Details Date Type Department Care Team (Late st Contact Info) Description 10/22/2010 Ancillary Orders [facility] Orthopedics- 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
--- OUTSIDE RECORDS SUMMARY | 2025-01-20 09:05 | XMS_ITS | Clinical Summary ---
Author Organization [email or web address] Address [address] [facility] [address] [facility] Attn: Epic Prelude ADT [place] [address] Care Team Providers Care Tungsten Refiner Name Role Phone Karen Haynes MD Primary Care Provider [phone] [phone] Allergies Active Allergy Reactions Criticality Noted Date Comments Ibuprofen Other (See Comments) 11/22/2019 Not supposed to have because she only has one kidney Naproxen Sodium Nausea and Vomiting Low 12/05/2009 Medications OTHER CBD LOTION 11/08/19 Active traZODone (DESYREL) 50 mg tablet Take 100 mg by mouth daily at bedtime. 11/08/19 Active OTHER 11/08/19 Active HYDROcodone-acetami nophen (NORCO) 7.5-325 mg TabletIndications:S tatus post total right knee replacement Take 1 Tablet by mouth every 4 hours as needed for Pain, Severe. Max Daily Amount: 6 Tablets 42 Tablet 0 12/30/19 Active gabapentin (NEURONTIN) 300 mg capsule Take 300 mg by mouth daily at bedtime. 01/12/20 Active Ozempic 2 mg/dose (8 mg/3 mL) Pen Injector 2 MG SUBCUTANEOUSLY WEEKLY 08/23/19 23 Active traMADoL (ULTRAM) 50 mg tabletIndications:S tatus post total right knee replacement Take 1 Tablet (50 mg) by mouth every 6 hours as needed for Pain. 60 Tablet 09/06/19 23 Active ALPRAZolam (XANAX) 1 mg tablet Take 1 mg by mouth 2 times daily. 11/26/19 Active atenoloL (TENORMIN) 50 mg tablet Take 50 mg by mouth daily. Active cyclobenzaprine (FLEXERIL) 10 mg tablet Take 10 mg by mouth 3 times daily as needed. 10/21/19 Active ARIPiprazole (ABILIFY) 2 mg tablet Take 2 mg by mouth daily at bedtime. 11/12/19 Active fenofibrate nanocrystallized (TRICOR) 145 mg tablet Take 160 mg by mouth daily at bedtime. Active desvenlafaxine (PRISTIQ) 100 mg Extended Release 24 hour tablet Take 100 mg by mouth daily at bedtime. 11/12/19 Active albuterol sulfate HFA 90 mcg/actuation aerosol inhaler Take 2 Puffs by inhalation every 6 hours as needed for Shortness of Breath. Active HYDROcodone-acetami nophen (NORCO) 7.5-325 mg TabletIndications:P ost-op pain Take 1 Tablet by mouth every 4 hours as needed for Pain. Max Daily Amount: 6 Tablets 20 Tablet 12/26/19 Active ondansetron (ZOFRAN ODT) 4 mg Tablet, Rapid Dissolve Take 1 Tablet (4 mg) by mouth every 6 hours as needed for Nausea/Emesis. Dissolve tablet on top of tongue, then swallow with saliva. 10 Tablet 12/26/19 Active HYDROcodone-acetami nophen (NORCO) 7.5-325 mg TabletIndications:P ost-op pain Take 1 Tablet by mouth every 4 hours as needed for Pain, Moderate. Max Daily Amount: 6 Tablets 20 Tablet 12/26/19 Active Active Problems Problem Noted Date Diagnosed Date Preoperative general physical examination 2019 Muscle spasm 11/08/2019 Mild intermittent asthma without complication Severe obesity (BMI 35.0-39.9) with comorbidity 11/08/2019 Solitary kidney, congenital 11/08/2019 Essential hypertension 11/08/2019 Panic attacks 11/08/2019 Breast hypertrophy 09/30/2011 Back pain 09/30/2011 Tobacco abuse 09/30/2011 Tobacco abuse counseling 09/30/2011 Primary osteoarthritis of right knee 12/18/2010 LBP radiating to right leg 01/15/2010 DDD (degenerative disc disease), lumbar 01/16/20 10 Overview (07/19/2020): L5-S1 with annular tear Obesity (BMI 35.0-39.9 without comorbidity) Resolved Problems Problem Noted Date Diagnosed Date Resolved Date Tobacco use disorder 04/16/2010 011 Tear of lateral cartilage or meniscus of knee, current 01/15/2010 04/16/2010 Overview (07/18/2020): Left knee Bodies, loose, joint, knee 01/15/2010 0 04/16/2010 Overview (07/18/2020): Left Encounters Date Type Department Care Team Description 12/13/2024 External Device Data STL ABSTRACTION Provider, Abstract 11/22/2024 External Device Data STL ABSTRACTION Provider, Abstract 11/09/2024 External Device Data STL ABSTRACTION Provider, Abstract 10/26/2024 External Device Data STL ABSTRACTION Provider, Abstract from Last 3 Months Family History Medical History Relation Name Comments [...] Sister Respiratory Disease Sister COPD Healthy Son Breast Cancer Neg Hx Cancer - Other Neg Hx Melanoma Neg Hx Ovarian Cancer Neg Hx Pancreatic Cancer Neg Hx Uterine or Endometrial Cance r, Not Including Cervical Neg Hx Relation Name Status Comments Brother 1 Alive Brother 2 Brother 3 Brother 4 Brother 5 Alive Daughter Alive Father Alive Maternal Grandfather Maternal Grandmother Mother Alive Paternal Grandfather Paternal Grandmother Sister Alive Son Alive Social History Tobacco Use Types Packs/Day Years Used Date Smoking Tobacco: Every Day Cigarettes Smokeless Tobacco: Never Tobacco Cessation:Ready to Q uit: Not Asked; Counseling Given: Not Answered Alcohol Use Standard Drinks/Week Comments Not Currently 0 (1 standard drink = 0.6 oz pur e alcohol) Feeling Safe Answer Date Recorded Are you in a relationship wi th someone who hurts you emotionally and/or physically? No 12/25/2022 Comments No Sex and Gender Information Value Date Recorded Sex Assigned at Not on file Legal Sex Female 4:41 PM SECURITY INTERN Gender Identity Not on file Sexual Orientation Not on file Last Filed Vital Signs Vital Sign Reading Time Taken Comments Blood Pressure 110/68 02/03/2024 2:05 PM SECURITY INTERN Pulse 67 12/25/2022 9:14 AM CDT Temperature 36.3 C (97.4 F) 12/25/2022 8:40 AM CDT Respiratory Rate 16 12/25/2022 8:40 AM CDT Oxygen Saturation 98% 12/25/2022 9:14 AM CDT Inhaled Oxygen Concentration - - Weight 86.6 kg (191 lb) 02/03/2024 2:05 PM SECURITY INTERN Height 175.3 cm (5' 9 ) 02/03/2024 2:05 PM SECURITY INTERN Body Mass Index 28.21 02/03/2024 2:05 PM SECURITY INTERN Plan of Treatment Health Maintenance Due Date [...] (1 of 2) 2014 BREAST CANCER SCREENING 09/11/2023 09/11/19 23, 12/03/2017, 12/03/2017 INFLUENZA VACCINE (#1) 2024 12/05/2017 HEPATITIS B VACCINES Aged Out No long er eligible based on patient's age to complete this topic Medical Devices Implanted Type Area Driver Guard Device Identifier Shelf Expiration Date Model / Serial / Lot Log [id number] - Cement - 1 - Cement [place] G-Hv 40g [id number] Implanted:Qt y: 1 on 12/18/2010 Cement Left: Knee BIOMET INC 04/23/2012 [id number] / / [id number] Clip Crtg Med/Lrg 1112 - Sn/A Implanted:Qt y: 1 on 12/25/2022 by Aiden Sosa DO at [facility] Clip N/A: Abdomen [employer] INC 07/19/2027 1112 / N/A / [id number] Log [id number] - Biomet Partial Knee System - 1 - Bearing [place] Lt Sz 4 [id number] Implanted:Qt y: 1 on 12/18/2010 Knee Left: Knee [employer] INC 07/22/2015 [id number] / / [id number] Log [id number] - Biomet Partial Knee System - 1 - Bearing Uni Fem [place] Med [id number] Implanted:Qt y: 1 on 12/18/2010 Knee Left: Knee [employer] 09/20/2020 [id number] / / [id number] Log [id number] - Biomet Partial Knee System - 1 - Tray Tib [place] Uni Szb Lm [id number] Implanted:Qt y: 1 on 12/18/2010 Knee Left: Knee [employer] INC 07/21/2020 [id number] / / [id number] Baseplate Tib Attune Rp Sz4 1506-11-004 - [id number] Implanted:Qt y: 1 on 11/22/2019 by Akash Waggoner MD Knee Right: Knee J&J- [employer] [id number] 05/20/2028 [id number] / / [id number] Insert Attune Ps Rp Sz5 7mm 1516-50-507 - [id number] Implanted:Qt y: 1 on 11/22/2019 by Akash Waggoner MD Knee Right: Knee J&J- [employer] [id number] 07/20/2024 [id number] / / [id number] Fem Porocoat Ps 5n Cmntls Implanted:Qt y: 1 on 11/22/2019 by Akash Waggoner MD Right: Knee 05/20/2029 DEPUY SYNTHES - 1504-11-225 / / [id number] Procedures Procedure Name Priority Date/Time Associated Diagnosis Comments MAMMO 3D NINOSKA SCREEN BILAT W OR WO CAD Routine 09/10/2022 12:45 PM CDT Encounter for screening mammogram for malignant neoplasm of breast from Last 3 Months or Most Recently Relevant to Health Maintenance Results * MAMMO SCRN BILAT 3D NINOSKA W OR WO CAD (09/10/2022 12:45 PM CDT) Anatomical Region Laterality Modality Breast Bilateral Mammography Impressions 09/19/2022 9:58 AM CDT : No mammographic evidence of malignancy. BI-RADS ASSESSMENT: 1 - Negative RECOMMENDATION: Routine annual screening mammography. Narrative 09/19/2022 9:58 AM CDT EXAM: MAMMO SCRN BILAT 3D NINOSKA W OR WO CAD INDICATION: Screening COMPARISON: 12/03/2017 MAMMO DIAGNOSTIC BILATERAL W OR WO CAD, 12/03/2017 MAMMO PRIOR STUDY, 01/24/2016 MAMMO PRIOR STUDY, and 01/26/2012 MAMMO PRIOR STUDY BREAST COMPOSITION: The breasts are heterogeneously dense, which may obscure small masses. FINDINGS: RIGHT BREAST: There are no suspicious masses, calcifications, or areas of architectural distortion. LEFT BREAST: There are no suspicious masses, calcifications, or areas of architectural distortion. Kym ALLENP MAMMO ORDERABLES Final Result from Last 3 Months or Most Recently Relevant to Health Maintenance [place] [address] DUAL COMPLETE O [facility] [id number] * Guarantor: VLADISLAV CORTES Account Type Relation to Patient Date of Phone Billing Address Personal/Family [address] [place] [address] RX INFOCROSSING Medicaid RX [employer] (INTERNAL) [facility] RX [facility] Medicare Part D Care Teams Tungsten Refiner Relationship Specialty Start Date End Date Karen Haynes MD [address] [place] [phone] PCP - General Internal Medicine 11/22/19
--- OUTSIDE RECORDS SUMMARY | 2025-01-20 09:05 | XMS_ITS | Encounter Summary ---
Author Organization [facility] Address [address] 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
[2025-01-20] MEDS: LORazepam 2 mg/mL INJ 1 mL IM (09:10)
[2025-01-20 09:25] LABS: Hematocrit 37.9 % (36-47); Hemoglobin 12.10 g/dL (11.27-16.99); Mean Corpuscular HGB Conc 31.9 g/dL (30-55); Mean Corpuscular Hemoglobin 27.7 pg (27-33); Mean Corpuscular Volume 86.7 fl (85-98); Nucleated Red Blood Cells % 0 %; Platelet Count 367 10^3/cmm (157-399); Red Blood Count 4.37 10^6/uL (3.85-5.65); White Blood Count 8.43 10^3/uL (3.29-11.43)
[2025-01-20] MEDS: water for injection-sterile 10 ML (09:27)
[2025-01-20 09:43] LABS: Troponin(5th) Baseline 7 ng/L (0-10)
[2025-01-20 09:58] LABS: Alanine Aminotransferase 10 U/L (0-33); Albumin Level 3.8 g/dL (3.5-5.2); Alkaline Phosphatase 123 U/L (35-105); Anion Gap 15.2 (5-19); Aspartate Amino Transferase 12 U/L (0-32); Blood Urea Nitrogen 10 mg/dL (8-23); Calcium 9.5 mg/dL (8.5-10.5); Carbon Dioxide 28 mmol/L (22-29); Chloride 102 mmol/L (98-107); Globulin 2.3 g/dL (1.3-4.6); Glucose 93 mg/dL (65-115); Osmolality Calculated 291 mOsm/kg (285-295); Potassium 4.2 mmol/L (3.5-5.1); Sodium 141 mmol/L (136-145); Total Protein 6.1 g/dL (6.6-8.7)
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
[2025-01-20 10:32] VITALS: BP 161/99
== END 2025-01-20 11:25 | disposition short-term general hospital (02) ==
PROVIDERS: Physician Assistant; Emergency Provider Family Medicine; PCP Family Medicine
DX: R45.851 Suicidal ideations (principal); F41.9 Anxiety disorder, unspecified; F23 Brief psychotic disorder
CPT/HCPCS: 36415; 71045; 80053; 84484; 85025; 93005; 96372; 99285; J2060; J3486